=== PATIENT | female | born 1950 ===

== ENCOUNTER 2021-10-23 15:59 | Emergency (ER) | payer SELFPAY ==
--- NOTE | 2021-10-23 17:40 | XRay Report ---
RIGHT ANKLE 3 VIEW(S) INDICATION / CLINICAL INFORMATION: FALL COMPARISON: None available. FINDINGS: BONES / JOINT(S): There is an oblique, significantly displaced and angulated distal fibula diaphyseal fracture approximately 8-9 cm above the distal tip of the lateral malleolus. There are also fracture s through the posterior and medial malleolus of the distal tibia. There is dislocation at the tibiota lar articulation with the talar dome displaced laterally with respect to the tibial plafond. No signi ficant arthritis. SOFT TISSUES: There is mild diffuse soft tissue swelling laterally. ADDITIONAL FINDINGS: None. IMPRESSION: 1. Fracture dislocation injury as described above. Signer Name: Luis M Mcqueen MD Signed: 10/23/2021 5:36 PM Workstation Name: [email or web address]
[2021-10-23] MEDS ORDERED: MORPHINE 4 MG/1 ML INJ IV ONE (20:33)
--- NOTE | 2021-10-23 20:35 | Event Note ---
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 She has not eaten since 8 or 9:00 this morning. She denies additional injuries and complaints. She denies allergies to medications. X-ray reviewed and appreciated. N.p.o., aspiration precautions, head of bed elevation. Explained to patient's family member and patient that we will need to likely perform a reduction, which would likely require sedation. Nursing team to establish IV access and give pain medication. Detailed history and physical to be performed by oncoming provider. Patient able to wiggle toes. RIGHT ANKLE 3 VIEW(S) INDICATION / CLINICAL INFORMATION: FALL COMPARISON: None available. FINDINGS: BONES / JOINT(S): There is an oblique, significantly displaced and angulated distal fibula diaphyseal fracture approximately 8-9 cm above the distal tip of the lateral malleolus. There are also fractures through the posterior and medial malleolus of the distal tibia. There is dislocation at the tibiotalar articulation with the talar dome displaced laterally with respect to the tibial plafond. No significant arthritis. SOFT TISSUES: There is mild diffuse soft tissue swelling laterally. ADDITIONAL FINDINGS: None. IMPRESSION: 1. Fracture dislocation injury as described above. Signer Name: Luis M Mcqueen MD Signed: 10/23/2021 4:36 PM Workstation Name: [email or web address] Vital Signs 10/23/21 16:20 Temperature 97.9 F Pulse Rate 79 Respiratory 20 Rate Blood Pressure 135/78 [Right] O2 Sat by Pulse 92 Oximetry
[2021-10-23] MEDS ORDERED: ONDANSETRON 4 MG/2 ML INJ IV ONE (21:29)
[2021-10-23] MEDS ORDERED: MORPHINE 4 MG/1 ML INJ IM ONE (21:29)
--- NOTE | 2021-10-23 21:40 | Emergency Department Report ---
HPI - General Chief Complaint: Extremity Injury, Lower PUI?: No Time Seen by Provider: 10/23/21 21:23 - HPI HPI: Note: Prior to this provider's shift time, , the patient has been waiting for evaluation for approximately 5 hours. Medical screening exam performed by ED physician, , prior to this provider's shift time and subsequent evaluation of the patient at the time of the start of my shift. 71-year-old female with no known past medical history who presents for evaluation of right ankle pain. She states that approximately 12 PM today she had a mechanical trip and fall, injuring her right ankle. She has not been able to bear weight. She denies any preceding lightheadedness dizziness chest pain shortness of breath difficulty breathing or palpitations. No tingling or numbness. She denies any prior history of right lower extremity surgeries in the past. She did not hit her head or lose consciousness. She denies pain to any other location of her body. Pain is constant throbbing and radiates throug hout her entire ankle and just her right lower extremity. Pain currently is 8 out of 10. ED Past Medical Hx - Past Medical History Previous Medical History?: No ED Review of Systems ROS: Stated complaint: BROKEN ANKLE Other details as noted in HPI Comment: All other systems reviewed and negative Physical Exam - Physical Exam Vital Signs: Vital Signs 10/23/21 16:20 Temperature 97.9 F Pulse Rate 79 Respiratory 20 Rate Blood Pressure 135/78 [Right] O2 Sat by Pulse 92 Oximetry General: Gen: pt is well appearing, no acute distress, asleep but easily arousable, upon waking up the patient states she is having "a lot of pain" in her right lower e xtremity, HEENT: Normocephalic atraumatic pupils equally round and reactive to light extraocular muscles intact sclera anicteric Neck: Full range of motion, no midline spinal tenderness palpation, no JVD, no carotid bruits, no nuchal rigidity CVS: S1-S2 regular rate and rhythm with no gallops rubs or murmurs, chest wall nontender Pulmonary: Clear to auscultation bilaterally, no wheezes rales or rhonchi Abdomen: Soft nondistended nontender no guarding or rebound tenderness, no palpable deformities or step-offs, normal active bowel sounds, no hepatosplenomegaly, no pulsatile masses : Deferred Extremities: Left lower extremity: No cyanosis no clubbing no edema, intact distal peripheral pulses;, right lower extremity: Patient has moderate edema to her distal right lower extremity, with eversion of her right ankle with obvious deformity, significant ecchymosis noted to be at the patient's medial malleolus, patient also has blistering of her skin, there are no lacerations or other open wounds, there is no bleeding, she is able to move her toes without difficulty, she has intact DP PT pulses in her right lower extremity, less than 2-second capillary refill in the toes, sensation to right lower extremity is grossly normal and intact, no signs or symptoms of compartment syndrome Integumentary: Skin normal, no petechia no purpura no abscess no lacerations no evidence of trauma no evidence of infection Neuro: Patient is awake alert and oriented to person place time situation, mentating well, cranial nerves II through XII intact, no focal neurodeficits, sensation grossly tact, unable to test gait at this time secondary to patient's current clinical condition Psych: Calm cooperative, mood affect normal ED Course Vital Signs 10/23/21 16:20 Temperature 97.9 F Pulse Rate 79 Respiratory 20 Rate Blood Pressure 135/78 [Right] O2 Sat by Pulse 92 Oximetry - Reevaluation(s) Reevaluation #1: 10/23/21 21:37 Pt is neurovascularly intact; intact dp/pt pulses in RLE; sensation intact; <2 sec cap refill in toes of R foot; compartments are soft; pt denies tingling/numbness Reevaluation #2: 10/24/21 22:43 Pt has intact dp/pt pulses, <2 sec cap refill in toes of R foot; compartments of RLE are soft, skin is warm; sensation intact; pt denies any new/worsening symptoms Reevaluation #3: 10/24/21 23:00 pt is well appearing; denies any worsening pain, worsening swelling, tingling/numbness, or any newly evolving symptoms ; pulses in RLE intact; sensation normal; - Consultations Consultation #1: 10/23/21 21:56 Return call received from Dr. Mendez, information services manager foot/ankle surgeon. I informed him that there is no orthopedics surgeon information services manager per the schedule and also this was confirmed with community service officer, Monie. I asked him to please come in to see the pt to evaluate her as she would likely need emergent operative management in the setting of her multiple fractures and her right ankle dislocation. Per his verbal report, he is unable to come in to see the patient. Per his verbal r eport, he is deferring management to orthopedic surgery. Again I informed him that there is no orthopedic surgeon on-call. He advises that the patient undergo reduction in the emergency department and discharged to home with outpatient orthopedic surgery follow-up. . 10/24/21 05:51 Consultation #2: 10/24/21 00:27 11:11 PM: Given that there is no current orthopedic surgeon information services manager, and per our discussion, Dr. Mendez states he is not able to come to the hospital, the case was reviewed via telephone with Dr. Schmitt. Informed him of my discussion with Dr. Mendez, as well as the fact that there is no on-call orthopedic surgeon for this facility based on today's schedule and confirmation with the community service officer, Monie. He advises that if the fracture cannot be successfully reduced, patient is to be transferred. 10/24/21 00:29 Consultation #3: 10/24/21 06:41 Per [facility], the pt has been accepted by trauma surgery attending, Tash, to the ER at [facility] [place]. - Orthopedic Joint Reduction Joint #1 Consent Obtained: verbal consent, written consent Time Out Performed: Yes Side: right Joint Reduction Location: ankle Analgesia: other (pt received fentanyl 25mcg IVP, and ketamine 25mg IVP) Technique Used: direct manipulation Post-Reduction Neuro Exam: intact Post-Reduction Vascular Exam: intact Post Reduction X-Ray Obtained: Yes Post Reduction X-Ray Results: reduced Splint Applied: Yes Patient Tolerated Procedure: well, no complications ED Medical Decision Making - Lab Data Result diagrams: 10/23/21 21:30 10/23/21 21:30 - Radiology Data Radiology results: report reviewed - Medical Decision Making 71-year-old female presents with right ankle fracture and right ankle dislocation. Vital signs stable. Patient reassessed by me multiple times if remains hemodynamically stable and neurovascular intact. No orthopedic surgery consultation was available as there was no orthopedic surgeon on-call for this hospital. Podiatry was telephoned and I spoke to Dr. Mendez. See pt's EHR for my documented discussion with him. R ankle dislocation reduction performed by me. Pt underwent multiple reassessments and her neurovascular exam remained normal. Pt transferred to [facility] for orthopedic surgical management of trimalleolar fx. Critical care attestation.: If time is entered above; I have spent that time in minutes in the direct care of this critically ill patient, excluding procedure time. ED Disposition Clinical Impression: Dislocated ankle, Ankle fracture, right Disposition: 02 SHORT TERM HOSPITAL Is pt being admited?: No Does the pt Need Aspirin: No Condition: Stable Referrals: BLU LEVIN MD [Primary Care Provider] - 3-5 Days
[2021-10-23 21:53] LABS: Hemoglobin 13.7 gm/dl (10.1-14.3); Mean Corpuscular HGB Conc 34 % (30-34); Mean Corpuscular Volume 86 fl (79-97); Platelet Count 362 K/mm3 (140-440); Red Blood Count 4.66 M/mm3 (3.65-5.03)
[2021-10-23 22:01] LABS: Blood Urea Nitrogen 18 mg/dL (7-17); Calcium 9.2 mg/dL (8.4-10.2); Hemolysis Index 7
[2021-10-23 22:02] LABS: BUN/Creatinine Ratio 30
[2021-10-23] MEDS ORDERED: KETAMINE 500 MG/5 ML VIAL MDV IV ONE ×2 (22:31→22:32)
[2021-10-23] MEDS ORDERED: fentaNYL 100 MCG/2 ML INJ IV ONE (22:31)
[2021-10-23] MEDS ORDERED: propofoL 200 MG/20 ML VIAL IV ONE (22:34)
[2021-10-23] MEDS ORDERED: SODIUM CHLORIDE 0.9% 1000 ML 1,000 ML ONE (22:40)
[2021-10-23 22:41] LABS: Eosinophils % (Manual) 0 % (0.0-4.3); Platelet Estimate Consistent w Auto; Total Cells Counted 100
[2021-10-23] MEDS ORDERED: SODIUM CHLORIDE 0.9% 1000 ML 1,000 ML IV ONE (22:50)
--- NOTE | 2021-10-23 23:26 | XRay Report ---
Right ankle 2 views INDICATION: Right ankle pain after injury IMPRESSION: Moderately displaced fracture involving the distal right fibular metaphysis which is mild ly comminuted. There is also displaced fracture involving the medial malleolus. There is a displaced fracture involving the posterior aspect of the tibial plafond consistent with trimalleolar displaced fractures. Signer Name: Giorgio Iglesias MD Signed: 10/23/2021 11:22 PM Workstation Name: [id number]
[2021-10-24 01:02] VITALS: BP 134/64
== END 2021-10-24 00:45 | disposition short-term general hospital (02) ==
LOC: ED 15:59
DX: S93.04XA Dislocation of right ankle joint, initial encounter (principal); X58.XXXA Exposure to other specified factors, initial encounter; Y93.89 Activity, other specified; Y92.89 Other specified places as the place of occurrence of the external cause; Y99.8 Other external cause status
CPT/HCPCS: 27840; 36415; 73600; 80048; 85007; 85025; 96361; 96372; 96374; 96375; 99285; J2270; J2405; J2704; J3010; J3490; J7030; 96376